=== PATIENT | female | born 1950 | race Caucasian/White ===

== ENCOUNTER 2019-06-02 10:45 | Emergency (ER) | payer MEDICARE, OTHER ==
[2019-06-02] MEDS ORDERED: Sodium Chloride 0.9% 10 ML Syringe FLUSH PRN (11:11)
--- NOTE | 2019-06-02 11:16 | EDM.PDOC ---
ED HPI GENERAL MEDICAL PROBLEM - General Chief Complaint: Cardiovascular Problem Stated Complaint: 2 HEART ATTACKS IN PAST 2 DAYS Time Seen by Provider: 06/02/19 11:05 Source of Information: Reports: Patient History Limitations: Reports: No Limitations - History of Present Illness INITIAL COMMENTS - FREE TEXT/NARRATIVE: Patient's unfortunate 68-year-old female who presents emergency Department today with complaint of chest pain. Patient reports she was in her normal state of health until 3 days ago when she was sitting reading a book and had became very fatigued and had a sudden onset of chest pressure. Patient reports that this pressure in her chest last approximately 15 minutes at which time she vomited and then the symptoms resolve. Patient reports she wrapped her in a blanket and went to sleep and didn't have any other problems rest the day. Patient reports that she has been off of her thyroid medicine for the last 6 weeks because she's been unable to afford to go to the doctor to get her medicine changed so she said "F them all" and stopped taking her thyroid medication. Patient reports she awoke this morning approximately 3 AM with severe left lower jaw pain this pain lasted approximately 15 minutes and then resolved. Separative sleep when she woke this morning she was feeling fine longer having symptoms however one of her friends convinced her to come to the emergency department for evaluation. No fever, no chills, no shortness of breath , no cough, no congestion. 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 Denies: Lightheadedness GI/Abdominal: Reports: Vomiting. Denies: Abdominal Pain Neurological: Reports: Weakness ED EXAM, GENERAL - Physical Exam Exam: See Below Exam Limited By: No Limitations General Appearance: Alert, WD/WN, No Apparent Distress Ears: Normal External Exam, Normal Canal, Hearing Grossly Normal, Normal TMs Throat/Mouth: Normal Inspection, Normal Lips, Normal Teeth, Normal Gums, Normal Oropharynx, Normal Voice, No Airway Compromise Head: Atraumatic, Normocephalic Neck: Normal Inspection, Supple, Non-Tender, Full Range of Motion Respiratory/Chest: No Respiratory Distress, Lungs Clear, Normal Breath Sounds, No Accessory Muscle Use, Chest Non-Tender Cardiovascular: Normal Peripheral Pulses, Regular Rate, Rhythm, No Edema, No Gallop, No JVD, No Murmur, No Rub GI/Abdominal: Normal Bowel Sounds, Soft, Non-Tender, No Organomegaly, No Distention, No Abnormal Bruit, No Mass Back Exam: Normal Inspection, Full Range of Motion, NT Extremities: Normal Inspection, Normal Range of Motion, Non-Tender, Normal Capillary Refill, No Pedal Edema Neurological: Alert, Oriented Skin Exam: Warm, Dry EKG INTERPRETATION EKG Date: 06/02/19 Time: 11:16 Rhythm: NSR P-Wave: Present QRS: Normal ST-T: Other (Nonspecific changes) QT: Prolonged EKG Interpretation Comments: No acute ischemic changes Course - Vital Signs Last Recorded V/S: Last Vital Signs Temp 98.9 F 06/02/19 10:52 Pulse 96 06/02/19 10:52 Resp 20 06/02/19 10:52 BP 196/116 H 06/02/19 10:52 Pulse Ox 90 L 06/02/19 10:52 - Orders/Labs/Meds Orders: Active Orders 24 hr Category Date Time Status EKG Documentation Completion [RC] ASDIRECTED Care 06/02/19 11:11 Active CULTURE URINE [RM] Stat Lab 06/02/19 12:05 Received Sodium Chloride 0.9% [Saline Flush] Med 06/02/19 11:11 Active 10 ml FLUSH ASDIRECTED PRN Saline Lock Insert [OM.PC] Stat Oth 06/02/19 11:12 Ordered EKG 12 Lead [EK] Stat Ther 06/02/19 11:11 Ordered Medication Orders Sodium Chloride (Saline Flush) 10 ml FLUSH ASDIRECTED PRN PRN Reason: Keep Vein Open Last Admin: 06/02/19 11:19 Dose: 10 ml Labs: Laboratory Tests 06/02/19 06/02/19 06/02/19 Range/Units 11:18 11:18 12:05 WBC 5.30 (3.98-10.04) K/mm3 RBC 4.23 (3.98-5.22) M/mm3 Hgb 12.8 (11.2-15.7) gm/dl Hct 39.3 (34.1-44.9) % MCV 92.9 (79.4-94.8) fl MCH 30.3 (25.6-32.2) pg MCHC 32.6 (32.2-35.5) g/dl RDW Std Deviation 49.3 H (36.4-46.3) fL Plt Count 257 (182-369) K/mm3 MPV 9.0 L (9.4-12.3) fl Neut % (Auto) 70.6 (34.0-71.1) % Lymph % (Auto) 21.9 (19.3-51.7) % [place] % (Auto) 6.2 (4.7-12.5) % Eos % (Auto) 0.2 L (0.7-5.8) Baso % (Auto) 0.9 (0.1-1.2) % Neut # (Auto) 3.74 (1.56-6.13) K/mm3 Lymph # (Auto) 1.16 L (1.18-3.74) K/mm3 [place] # (Auto) 0.33 (0.24-0.36) K/mm3 Eos # (Auto) 0.01 L (0.04-0.36) K/mm3 Baso # (Auto) 0.05 (0.01-0.08) K/mm3 Sodium 131 L (136-145) mEq/L Potassium 3.4 L (3.5-5.1) mEq/L Chloride 93 L (98-107) mEq/L Carbon Dioxide 17 L (21-32) mEq/L Anion Gap 24.4 H (5-15) BUN 12 (7-18) mg/dL Creatinine 1.0 (0.55-1.02) mg/dL Est Cr Clr Drug Dosing 45.49 mL/min Estimated GFR (MDRD) 55 (>60) mL/min BUN/Creatinine Ratio 12.0 L (14-18) Glucose 61 L (80-115) mg/dL Calcium 9.0 (8.5-10.1) mg/dL Total Bilirubin 0.7 (0.2-1.0) mg/dL AST 30 (15-37) U/L ALT 21 (14-59) U/L Alkaline Phosphatase 60 (46-116) U/L Troponin I < 0.017 (0.00-0.056) ng/mL Total Protein 8.5 H (6.4-8.2) g/dl Albumin 4.6 (3.4-5.0) g/dl Globulin 3.9 gm/dL Albumin/Globulin Ratio 1.2 (1-2) Lipase 122 (73-393) U/L TSH 3rd Generation 121.830 H (0.358-3.74) uIU/mL Urine Color Light yellow (Yellow) Urine Appearance Clear (Clear) Urine pH 6.0 (5.0-8.0) Ur Specific [place] 1.020 (1.005-1.030) Urine Protein Negative (Negative) Urine Glucose (UA) Negative (Negative) Urine Ketones 2+ H (Negative) Urine Occult Blood Negative (Negative) Urine Nitrite Negative (Negative) Urine Bilirubin Negative (Negative) Urine Urobilinogen 0.2 (0.2-1.0) Ur Leukocyte Esterase 2+ H (Negative) Urine RBC 0-5 (0-5) /hpf Urine WBC 10-20 H (0-5) /hpf Urine WBC Clumps Few (NOT SEEN) /hpf Ur Epithelial Cells 0-5 (0-5) /hpf Urine Bacteria Rare (FEW) /hpf Urine Mucus Not seen (FEW) /hpf 06/02/19 Range/Units 13:00 WBC (3.98-10.04) K/mm3 RBC (3.98-5.22) M/mm3 Hgb (11.2-15.7) gm/dl Hct (34.1-44.9) % MCV (79.4-94.8) fl MCH (25.6-32.2) pg MCHC (32.2-35.5) g/dl RDW Std Deviation (36.4-46.3) fL Plt Count (182-369) K/mm3 MPV (9.4-12.3) fl Neut % (Auto) (34.0-71.1) % Lymph % (Auto) (19.3-51.7) % [place] % (Auto) (4.7-12.5) % Eos % (Auto) (0.7-5.8) Baso % (Auto) (0.1-1.2) % Neut # (Auto) (1.56-6.13) K/mm3 Lymph # (Auto) (1.18-3.74) K/mm3 [place] # (Auto) (0.24-0.36) K/mm3 Eos # (Auto) (0.04-0.36) K/mm3 Baso # (Auto) (0.01-0.08) K/mm3 Sodium (136-145) mEq/L Potassium (3.5-5.1) mEq/L Chloride (98-107) mEq/L Carbon Dioxide (21-32) mEq/L Anion Gap (5-15) BUN (7-18) mg/dL Creatinine (0.55-1.02) mg/dL Est Cr Clr Drug Dosing mL/min Estimated GFR (MDRD) (>60) mL/min BUN/Creatinine Ratio (14-18) Glucose (80-115) mg/dL Calcium (8.5-10.1) mg/dL Total Bilirubin (0.2-1.0) mg/dL AST (15-37) U/L ALT (14-59) U/L Alkaline Phosphatase (46-116) U/L Troponin I < 0.017 (0.00-0.056) ng/mL Total Protein (6.4-8.2) g/dl Albumin (3.4-5.0) g/dl Globulin gm/dL Albumin/Globulin Ratio (1-2) Lipase (73-393) U/L TSH 3rd Generation (0.358-3.74) uIU/mL Urine Color (Yellow) Urine Appearance (Clear) Urine pH (5.0-8.0) Ur Specific [place] (1.005-1.030) Urine Protein (Negative) Urine Glucose (UA) (Negative) Urine Ketones (Negative) Urine Occult Blood (Negative) Urine Nitrite (Negative) Urine Bilirubin (Negative) Urine Urobilinogen (0.2-1.0) Ur Leukocyte Esterase (Negative) Urine RBC (0-5) /hpf Urine WBC (0-5) /hpf Urine WBC Clumps (NOT SEEN) /hpf Ur Epithelial Cells (0-5) /hpf Urine Bacteria (FEW) /hpf Urine Mucus (FEW) /hpf Meds: Medications Generic Name Dose Route Start Last Admin Trade Name Freq PRN Reason Stop Dose Admin Sodium Chloride 10 ml 06/02/19 11:11 06/02/19 11:19 Saline Flush FLUSH 10 ml ASDIRECTED PRN Administration Keep Vein Open - Re-Assessments/Exams Free Text/Narrative Re-Assessment/Exam: 06/02/19 13:42 Repeat troponin is negative TSH is 121.83 patient needs to not take her friend' s thyroid medication and we will put her on antibiotics for her UTI follow-up outpatient with cardiology for stress test and possible cardiac catheterization Departure - Departure Time of Disposition: 13:42 Disposition: Home, Self-Care 01 Condition: Good Clinical Impression: Chest pain Qualifiers: Chest pain type: unspecified Qualified Code(s): R07.9 - Chest pain, unspecified UTI (urinary tract infection) Qualifiers: Urinary tract infection type: site unspecified Hematuria presence: without hematuria Qualified Code(s): N39.0 - Urinary tract infection, site not specified Hypothyroidism Qualifiers: Hypothyroidism type: other Qualified Code(s): E03.8 - Other specified hypothyroidism Prescriptions: Cephalexin [Keflex] 500 mg PO QID #28 capsule Referrals: Shania Thornton NP [Primary Care Provider] - Forms: ED Department Discharge Additional Instructions: Home, rest, follow-up with cloth winder machine operator in the next week or 2 for a stress test , follow-up with your PCP regarding your thyroid, return as needed for worsening condition Sepsis Event Note - Evaluation Sepsis Screening Result: No Definite Risk - Focused Exam Vital Signs: Vital Signs Temp Pulse Resp BP Pulse Ox 06/02/19 10:52 98.9 F 96 20 196/116 H 90 L Date Exam was Performed: 06/02/19 Time Exam was Performed: 13:41 - My Orders Last 24 Hours: My Active Orders 06/02/19 11:11 EKG Documentation Completion [RC] ASDIRECTED Sodium Chloride 0.9% [Saline Flush] 10 ml FLUSH ASDIRECTED PRN EKG 12 Lead [EK] Stat 06/02/19 11:12 Saline Lock Insert [OM.PC] Stat 06/02/19 12:05 CULTURE URINE [RM] Stat - Assessment/Plan Last 24 Hours: My Active Orders 06/02/19 11:11 EKG Documentation Completion [RC] ASDIRECTED Sodium Chloride 0.9% [Saline Flush] 10 ml FLUSH ASDIRECTED PRN EKG 12 Lead [EK] Stat 06/02/19 11:12 Saline Lock Insert [OM.PC] Stat 06/02/19 12:05 CULTURE URINE [RM] Stat
--- NOTE | 2019-06-02 12:40 | CR ---
Chest: Two views of the chest were obtained. Comparison: No previous chest x-ray. Heart size is normal. Tortuous thoracic aorta is seen. Lungs are clear but somewhat hyperinflated. Bony structures show minimal scoliosis within the spine. Impression: 1. Probable emphysematous change. 2. Nothing acute is seen on two-view chest x-ray. Diagnostic code #2 This report was dictated in [place] Standard Time
== END 2019-06-02 14:20 | disposition home or self-care (01) ==
LOC: JD.ED 10:45
DX: R07.89 Other chest pain (principal); N39.0 Urinary tract infection, site not specified; E03.8 Other specified hypothyroidism; Z87.891 Personal history of nicotine dependence; Z88.5 Allergy status to narcotic agent; Z79.899 Other long term (current) drug therapy
CPT/HCPCS: 36415; 71046; 71046-26; 80053; 81001; 83690; 84443; 84484; 85025; 87086; 93005; 93010; 99284; 99285-25

== ENCOUNTER 2019-07-02 14:07 | Emergency (ER) | payer MEDICARE ==
[2019-07-02] MEDS ORDERED: Metoprolol Tartrate 5 MG/5 ML SDV IVPUSH ONE (14:45)
[2019-07-02] MEDS ORDERED: Dextrose 5%-0.9% NaCl 1,000 ML IV SCH (14:45)
[2019-07-02] MEDS ORDERED: Ondansetron 4 MG/2 ML SDV IVPUSH ONE (14:53)
--- NOTE | 2019-07-02 14:57 | EDM.PDOC ---
ED HPI GENERAL MEDICAL PROBLEM - General Chief Complaint: Cardiovascular Problem Stated Complaint: [facility] Time Seen by Provider: 07/02/19 14:40 Source of Information: Reports: Patient History Limitations: Reports: No Limitations - History of Present Illness INITIAL COMMENTS - FREE TEXT/NARRATIVE: 68-year-old female arrives in the ED per [place] [facility]. She generally did not feel well since getting up this morning. She ate normally yesterday but today has been unable to eat and she has been having diarrhea. She vomited 4-5 times in route to the hospital and she believes mostly because of motion sickness in the ambulance. She has not vomited at home. At present she is mildly nauseated. Emesis contained only bilious material. Diarrhea is loose and watery. Very minimal associated abdominal cramping discomfort. There was some suggestion that she had some chest pain but she denies this. She does feel perhaps a little short of breath but blames this on being anxious. Blood pressure initially is elevated at 180/88. Patient was found to be markedly hypothyroid on visit to the ED 2 weeks ago and subsequently has been restarted on her thyroid medication. Paramedics appreciated that she is running bigeminal unifocal PVCs fairly regularly in route. The patient does get dizzy lightheaded at times suggesting that she is aware of the bigeminal pattern. She commented that she just knew something was not right. She has no known coronary artery disease. She admits that she tends to be type A personality and very anxious. At present she states she is feeling overall better. Onset: Today Onset Date: 07/02/19 Onset Time: 06:00 Duration: Hour(s): (Not felt well since she got up this morning.) Location: Reports: Generalized (I sense of just feeling ill with shortness of breath fatigue lightheadedness dizziness and loss of appetite.) Quality: Reports: Other Severity: Moderate (Sense of illness. Lightheadedness fatigue loss of appetite dizziness) Improves with: Reports: None Worsens with: Reports: Movement Context: Reports: Other (With symptoms this morning.). Denies: Activity, Exercise, Lifting, Sick Contact, Trauma Associated Symptoms: Reports: Loss of Appetite, Malaise, Nausea/Vomiting (Bed x5 in route to the hospital), Shortness of Breath. Denies: Confusion, Chest Pain, Cough, cough w sputum, Diaphoresis, Fever/Chills, Headaches, Rash, Seizure , Syncope Treatments [employer]ENTATIVE: Reports: Other (see below) - Related Data Allergies Allergy/AdvReac Type Severity Reaction Status Date / Time codeine AdvReac Nausea and Verified 06/02/19 11:30 Vomiting Home Meds: Home Meds Levothyroxine 75 mcg PO DAILY 06/02/19 [History] Past Medical History - Past Health History Medical/Surgical History: Denies Medical/Surgical History Endocrine/Metabolic History: Reports: Hypothyroidism, Other (See Below) Other Endocrine/Metabolic History: graves disease Social & Family History - Family History Family Medical History: Noncontributory - Tobacco Use Smoking Status *Q: Never Smoker - Caffeine Use Caffeine Use: Reports: Coffee - Recreational Drug Use Recreational Drug Use: No - Living Situation & Occupation Living situation: Reports: Single Occupation: Retired ED ROS GENERAL - Review of Systems Review Of Systems: See Below Constitutional: Reports: Malaise, Weakness, Fatigue, Decreased Appetite. Denies : Fever, Chills HEENT: Reports: Glasses Respiratory: Reports: Shortness of Breath. Denies: Wheezing, Pleuritic Chest Pain Cardiovascular: Reports: Blood Pressure Problem, Dyspnea on Exertion, Lightheadedness, Palpitations. Denies: Claudication (Borderline hypertension), Edema, Orthopnea Endocrine: Reports: Fatigue GI/Abdominal: Reports: Diarrhea (Mild diarrhea she states started yesterday x3.) , Nausea (At the time of my exam), Vomiting (Did x5 in route to the hospital. She blames this on motion sickness but she may well have a gastroenteritis.) : Denies: Dysuria, Frequency, Urgency Musculoskeletal: Reports: Neck Pain, Back Pain (Minimally), Joint Pain ( mentally) Skin: Reports: No Symptoms ( and knees at times) Neurological: Reports: Confusion, Dizziness, Weakness. Denies: Headache, Syncope, Tremors, Trouble Speaking, Difficulty Walking, Change in Speech, Gait Disturbance Psychiatric: Reports: Anxiety Hematologic/Lymphatic: Reports: No Symptoms (Likely) Immunologic: Reports: No Symptoms ED EXAM, GENERAL - Physical Exam Exam: See Below Exam Limited By: No Limitations General Appearance: Alert, WD/WN, Anxious, Mild Distress, Other (She was 36.3. Heart rate was 69 with a respiratory of 16 BP elevated 161/90. Pulse ox 100% on room air) Eye Exam: Bilateral Eye: Normal Inspection, PERRL Throat/Mouth: Normal Inspection, Normal Lips, Normal Oropharynx Head: Atraumatic, Normocephalic Neck: Normal Inspection, Supple, Non-Tender, Thyromegaly (Does have a palpable thyroid with no nodules identified). No: Lymphadenopathy (L), Lymphadenopathy ( R) Respiratory/Chest: No Respiratory Distress, Lungs Clear, Normal Breath Sounds, No Accessory Muscle Use Cardiovascular: Normal Peripheral Pulses, Regular Rate, Rhythm, No Edema, No Gallop, No Murmur, No Rub, Other (Varicosities both lower extremities) Peripheral Pulses: 2+: Posterior Tibial (L), Posterior Tibial (R), Dorsalis Pedis (L), 4+: Dorsalis Pedis (R) GI/Abdominal: Soft, Non-Tender, No Organomegaly, No Abnormal Bruit, No Mass, Pelvis Stable, Abnormal Bowel Sounds (Mildly hyperactive bowel sounds in all 4 quadrants) Back Exam: Normal Inspection, Full Range of Motion. No: CVA Tenderness (L), CVA Tenderness (R) Extremities: Normal Inspection, Normal Range of Motion, Non-Tender, No Pedal Edema Neurological: Alert, Oriented, CN II-XII Intact, Normal Cognition Psychiatric: Normal Mood, Anxious Skin Exam: Warm, Dry, Intact, Normal Color, No Rash EKG INTERPRETATION EKG Date: 07/02/19 Time: 14:13 Rhythm: NSR Rate (Beats/Min): 81 (Frequent unifocal PVCs sometimes in a bigeminal fashion.) [place]: Normal P-Wave: Present QRS: Other (Q waves in V1 V2 suggesting possible old anteroseptal myocardial infarction.) ST-T: Other (Wave flattening 1 and aVL. T wave inversion leads II and III which by themselves are nonspecific.) QT: Prolonged ([place] prolonged) EKG Interpretation Comments: Abnormal ECG. Course - Vital Signs Last Recorded V/S: Last Vital Signs Temp 36.9 C 07/02/19 18: Pulse 80 07/02/19 18:20 Resp 16 07/02/19 18: BP 172/102 H 07/02/19 18:20 Pulse Ox 100 07/02/19 18:20 - Orders/Labs/Meds Labs: Laboratory Tests 07/02/19 07/02/19 07/02/19 Range/Units 13:45 14:25 14:25 WBC 6.52 (3.98-10.04) K/mm3 RBC 4.27 (3.98-5.22) M/mm3 Hgb 13.2 (11.2-15.7) gm/dl Hct 40.6 (34.1-44.9) % MCV 95.1 H (79.4-94.8) fl MCH 30.9 (25.6-32.2) pg MCHC 32.5 (32.2-35.5) g/dl RDW Std Deviation 47.4 H (36.4-46.3) fL Plt Count 282 (182-369) K/mm3 MPV 9.5 (9.4-12.3) fl Neut % (Auto) 82.0 H (34.0-71.1) % Lymph % (Auto) 14.0 L (19.3-51.7) % [place] % (Auto) 3.5 L (4.7-12.5) % Eos % (Auto) 0 L (0.7-5.8) Baso % (Auto) 0.3 (0.1-1.2) % Neut # (Auto) 5.35 (1.56-6.13) K/mm3 Lymph # (Auto) 0.91 L (1.18-3.74) K/mm3 [place] # (Auto) 0.23 L (0.24-0.36) K/mm3 Eos # (Auto) 0.00 L (0.04-0.36) K/mm3 Baso # (Auto) 0.02 (0.01-0.08) K/mm3 Sodium 131 L (136-145) mEq/L Potassium 3.3 L (3.5-5.1) mEq/L Chloride 92 L (98-107) mEq/L Carbon Dioxide 21 (21-32) mEq/L Anion Gap 21.3 H (5-15) BUN 8 (7-18) mg/dL Creatinine 0.9 (0.55-1.02) mg/dL Est Cr Clr Drug Dosing 47.12 mL/min Estimated GFR (MDRD) > 60 (>60) mL/min BUN/Creatinine Ratio 8.9 L (14-18) Glucose 156 H (80-115) mg/dL Calcium 9.3 (8.5-10.1) mg/dL Magnesium 1.9 (1.8-2.4) mg/dl Total Bilirubin 0.4 (0.2-1.0) mg/dL AST 17 (15-37) U/L ALT 16 (14-59) U/L Alkaline Phosphatase 67 (46-116) U/L Troponin I < 0.017 (0.00-0.056) ng/mL NT-Pro-B Natriuret Pep (0-125) pg/mL Total Protein 8.6 H (6.4-8.2) g/dl Albumin 4.6 (3.4-5.0) g/dl Globulin 4.0 gm/dL Albumin/Globulin Ratio 1.2 (1-2) TSH 3rd Generation 6.218 H (0.358-3.74) uIU/mL Ketones 1.6 (0.0-0.3) mM 07/02/19 Range/Units 14:25 WBC (3.98-10.04) K/mm3 RBC (3.98-5.22) M/mm3 Hgb (11.2-15.7) gm/dl Hct (34.1-44.9) % MCV (79.4-94.8) fl MCH (25.6-32.2) pg MCHC (32.2-35.5) g/dl RDW Std Deviation (36.4-46.3) fL Plt Count (182-369) K/mm3 MPV (9.4-12.3) fl Neut % (Auto) (34.0-71.1) % Lymph % (Auto) (19.3-51.7) % [place] % (Auto) (4.7-12.5) % Eos % (Auto) (0.7-5.8) Baso % (Auto) (0.1-1.2) % Neut # (Auto) (1.56-6.13) K/mm3 Lymph # (Auto) (1.18-3.74) K/mm3 [place] # (Auto) (0.24-0.36) K/mm3 Eos # (Auto) (0.04-0.36) K/mm3 Baso # (Auto) (0.01-0.08) K/mm3 Sodium (136-145) mEq/L Potassium (3.5-5.1) mEq/L Chloride (98-107) mEq/L Carbon Dioxide (21-32) mEq/L Anion Gap (5-15) BUN (7-18) mg/dL Creatinine (0.55-1.02) mg/dL Est Cr Clr Drug Dosing mL/min Estimated GFR (MDRD) (>60) mL/min BUN/Creatinine Ratio (14-18) Glucose (80-115) mg/dL Calcium (8.5-10.1) mg/dL Magnesium (1.8-2.4) mg/dl Total Bilirubin (0.2-1.0) mg/dL AST (15-37) U/L ALT (14-59) U/L Alkaline Phosphatase (46-116) U/L Troponin I (0.00-0.056) ng/mL NT-Pro-B Natriuret Pep 352 H (0-125) pg/mL Total Protein (6.4-8.2) g/dl Albumin (3.4-5.0) g/dl Globulin gm/dL Albumin/Globulin Ratio (1-2) TSH 3rd Generation (0.358-3.74) uIU/mL Ketones (0.0-0.3) mM Meds: Medications Discontinued Medications Generic Name Dose Route Start Last Admin Trade Name Freq PRN Reason Stop Dose Admin Dextrose/Sodium Chloride 1,000 mls @ 500 mls/hr 07/02/19 14:45 07/02/19 14:55 Dextrose 5%-Normal Saline IV 500 mls/hr ASDIRECTED ELISABETH Administration Metoprolol Tartrate 5 mg 07/02/19 14:45 07/02/19 15:02 Lopressor IVPUSH 07/02/19 14:46 5 mg ONETIME ONE Administration Ondansetron HCl 4 mg 07/02/19 14:53 07/02/19 15:12 Zofran IVPUSH 07/02/19 14:54 4 mg ONETIME ONE Administration - Radiology Interpretation Free Text/Narrative:: 68-year-old female presents to the ED per [facility] with nonspecific symptoms of generally not feeling well. This is been since she awoke this morning. She has not been able to eat. She feels somewhat lightheaded and dizzy at times perhaps mildly short of breath as well. She had nausea and vomiting x5 in route to the hospital which she blamed on motion sickness in the ambulance. She has been having some loose stool starting yesterday without any blood. She therefore may well have a mild gastroenteritis. Monitor however shows that she is hypertensive and she does have runs of bigeminal PVCs. He denies having any chest pain. Plan ECG. Routine labs including cardiac markers. 1 view chest x-ray. Going to give her Lopressor 5 mg IV to reduce the PVCs and also to reduce her systolic hypertension as she is 180/88. - Re-Assessments/Exams Free Text/Narrative Re-Assessment/Exam: 07/02/19 15:48 Blood pressure is come down to 156/84 heart rate is 64 and there is been no further PVCs but occasional PACs noted.White count is 6.52 with auto differential of 82% neutrophils. Hemoglobin is 13.2 with hematocrit of 40.6. MCV is mildly elevated at 95.1. Platelet count is 282,000. Sodium slightly low at 131 with potassium of 3.3. Chloride is 92 with a bicarb of 21. Anion gap is elevated at 21.3. BUN is 8 with a creatinine of 0.9. Glucose is 156. Calcium 9.3 with a magnesium of 1.9. Liver function is normal. Troponin is less than 0.017. BNP is mildly elevated at 352. Total protein is 8.6. Albumin fraction is 4.6 TSH is down to 6.218. Chest x-ray portably does reveal old lungs with scar tissue in both lung bases and perhaps mild vascular congestion pattern without pleural effusion. Will have serum ketones done to see if we can identify why she has a metabolic acidosis. 07/02/19 16:18 : Serum ketones did come back elevated at 1.6 which explains her metabolic acidosis. On formal questioning she reports that she has been following a keto diet. Not sure why as she is actually very thin. Advised her that the buildup of the keto acetones in her blood is what was making her feel so ill such as nausea lightheaded dizziness and weak. Is that she needs to take in at least 25 g of carbohydrates daily. Is much improved after IV fluids. She has had no further tachyarrhythmias or PVCs since receiving the Lopressor. Her blood pressure also came down to 148/84. Plan will now be to discharge her back to [place] and she will start to seek a ride. Departure - Departure Time of Disposition: 18:19 Disposition: Home, Self-Care 01 Condition: Fair Clinical Impression: Metabolic acidosis with increased anion gap and accumulation of organic acids, Ventricular premature contractions, Mild essential hypertension, Palpitations Instructions: Hypertension, [id number], Palpitations, [id number], Metabolic Acidosis Referrals: PCP,Unknown [Ordering Only Provider] - Forms: ED Department Discharge Additional Instructions: Patient in the emergency room today in regards to generally not feeling well with symptoms of dizziness, lightheadedness, nausea and generalized weakness. Aware of extra skips or heartbeats. Started to feel this way when he awoke this morning and could not eat. Evaluation in the emergency room did reveal that you did have frequent premature ventricular contractions sometimes every other beat. You were therefore given a medicine called Lopressor 5 mg intravenously which suppress them completely. Your blood pressure initially was very elevated but came down over time. You do have a mild elevated blood pressure all the time and you should keep an eye on this. Lab work revealed that you are suffering a metabolic acidosis due to buildup of ketones in your bloodstream which is secondary to breaking down fats for energy. This is the due to the fact that you are following a keto diet means you are not taking any sugars in and your body is reacting to this as it is used to having some carbohydrates or sugars in the system. The buildup of the keto acids is what made you sick today. I would suggest a balanced diet at your age with 25% carbohydrates in your diet and 50% protein and 25% fats. You are not overweight and do not need to follow a diet to lose weight. I feel that your extra heartbeats today were also secondary to irritation of the heart muscle from buildup of ketones in your bloodstream. Check on your thyroid function since she resumed thyroid hormone replacement therapy 2 weeks ago reveals your TSH is down to 6.12. He needs to get down to between 1 and 2 which is normal. This will likely take another 3 weeks or so. For at this time no changes to her medications are to be made. I would suggest follow-up on your blood pressure at the clinic in [place]. The ketosis was corrected in the ED with intravenous fluids but you still need to take plenty of fluids and resume a regular diet. Sepsis Event Note - Evaluation Sepsis Screening Result: No Definite Risk - Focused Exam Vital Signs: Vital Signs Temp Pulse Pulse Resp BP BP Pulse Ox 07/02/19 18:20 36.9 C 80 16 172/102 H 100 07/02/19 15:02 68 182/120 H 07/02/19 14:17 36.3 C 69 16 161/90 H 100 Date Exam was Performed: 07/02/19 Time Exam was Performed: 21:03
--- NOTE | 2019-07-02 16:09 | CR ---
Chest: Portable view of the chest was obtained. Comparison: Prior chest x-ray of 06/02/19. Heart size is normal. Tortuous thoracic aorta is seen. Lungs are hyperinflated compatible with emphysematous change. No acute parenchymal process is seen within either lung. Bony structures are grossly intact. Impression: 1. Nothing acute is seen on frontal chest x-ray. Diagnostic code #2 Study was dictated in [place] Standard Time
== END 2019-07-02 18:40 | disposition home or self-care (01) ==
LOC: JD.ED 14:07
DX: E87.2 Acidosis (principal); I49.3 Ventricular premature depolarization; I10 Essential (primary) hypertension; E03.9 Hypothyroidism, unspecified; Z88.5 Allergy status to narcotic agent; Z79.890 Hormone replacement therapy
CPT/HCPCS: 36415; 71045; 80053; 82009; 83735; 83880; 84443; 84484; 85025; 96361; 96374; 96375; 99284; J2405; J3490; J7042; 93010; 99285